=== PATIENT | female | born 2000 | race Hispanic/Latino ===

== ENCOUNTER 2023-01-03 12:33 | Emergency (ER) | payer MEDICAID, SELFPAY ==
[2023-01-03 14:58] LABS: Bilirubin Neg (Negative); Blood, Urine Negative (Negative); Glucose, Urine (Dipstick) Normal (Negative); Ketone, Urine Negative (Negative); Leukocyte Negative (Negative); Nitrite Negative (Negative); Protein, Urine (Dipstick) Negative (Neg-Trace); Urobilinogen Normal mg/dL (Less than 2)
[2023-01-03 15:00] LABS: Clarity Clear (Clear)
== END 2023-01-03 15:29 | disposition home or self-care (01) ==
LOC: CSHERS 12:33
DX: O20.0 Threatened abortion (principal); Z3A.01 Less than 8 weeks gestation of pregnancy
CPT/HCPCS: 36415; 76817; 81003; 86900; 86901

== ENCOUNTER 2024-03-18 16:34 | Inpatient (IN) | payer OTHER ==
[2024-03-18 17:00] VITALS: BMI 30.2
[2024-03-18] MEDS ORDERED: Tranexamic Acid 1,000 MG/10 ML VIAL IVP PRN (17:19)
[2024-03-18] MEDS ORDERED: Carboprost 250 MCG/ML AMP IM PRN (17:19)
[2024-03-18] MEDS ORDERED: Misoprostol 200 MCG TAB PR PRN (17:19)
[2024-03-18] MEDS ORDERED: Acetaminophen 500 MG TAB PO PRN (17:19)
[2024-03-18] MEDS ORDERED: Diphenoxylate HCl/Atropine Tablet PO PRN (17:19)
[2024-03-18] MEDS ORDERED: Promethazine HCl 25 MG/ML VIAL IM PRN (17:19)
[2024-03-18] MEDS ORDERED: hydrALAZINE 20 MG/ML VIAL SLOW IVP PRN (17:19)
[2024-03-18] MEDS ORDERED: Ondansetron PF 4 MG/2 ML Vial IVP PRN (17:19)
[2024-03-18] MEDS ORDERED: Methylergonovine 0.2 MG/ML VIAL IM PRN (17:19)
[2024-03-18] MEDS ORDERED: HYDROcodone/Acetaminophen 5/325 mg Tablet PO PRN (17:19)
[2024-03-18] MEDS ORDERED: Lidocaine 1% (PF) 30 ML VIAL SC PRN (17:19)
[2024-03-18] MEDS ORDERED: Ibuprofen 800 MG TAB PO PRN (17:19)
[2024-03-18] MEDS ORDERED: Lactated Ringer's 1,000 ML IV SCH (17:30)
[2024-03-18] MEDS ORDERED: Oxytocin 30 units/NS 500 ML 500 ML IV SCH ×2 (17:30)
[2024-03-18 17:51] LABS: Fetal Membranes Rupture RUPTURE DETECTED (No Rupture)
[2024-03-18] MEDS: Oxytocin 30 units/NS 500 ML 500 ML IV SCH (18:25)
[2024-03-18 18:48] LABS: Hematocrit 36.6 % (34.9-44.5); Hemoglobin 12.6 g/dL (12.0-15.5); Mean Corpuscular HGB CONC 34.4 g/dL (32.0-36.0); Mean Corpuscular Hemoglobin 33.3 pg (27.0-33.0); Mean Corpuscular Volume 96.8 fL (81.6-98.3); Mean Platelet Volume 13.9 fL (7.4-10.4); Platelet Count 138 10x3/uL (150-450); RBC Distribution Width 13.2 % (11.5-14.5); Red Blood Cell (RBC) Count 3.78 10x6/uL (3.90-5.03); White Blood Cell (WBC) Count 14.1 10x3/uL (3.5-10.5)
[2024-03-18 19:19] LABS: HBsAg Index 0.18 S/CO (0-0.99); Hep B Surf Ag - L&D Non-Reactive S/CO (NonReactive)
[2024-03-18 19:21] LABS: Syphilis Antibody Nonreactive (Nonreactive); Syphilis Antibody Index 0.08 S/CO (<1.00 Non-Reactive)
[2024-03-19] MEDS: fentaNYL 50 mcg/mL 1 mL Vial SLOW IVP PRN (01:41)
[2024-03-19] MEDS ORDERED: Acetaminophen 325 MG TAB PO PRN (03:01)
[2024-03-19] MEDS ORDERED: Moisturizing Cream (Eucerin) 113 GM JAR TOP PRN (03:01)
[2024-03-19] MEDS ORDERED: Promethazine HCl 25 MG/ML VIAL IM PRN ×2 (03:01→07:51)
[2024-03-19] MEDS ORDERED: Lactated Ringer's 500 ML IV PRN (03:01)
[2024-03-19] MEDS ORDERED: ePHEDrine Sulfate 50 MG/10 ML VIAL SLOW IVP PRN (03:01)
[2024-03-19] MEDS ORDERED: Ondansetron PF 4 MG/2 ML Vial IVP PRN ×2 (03:01→07:51)
[2024-03-19] MEDS ORDERED: Naloxone HCl 0.4 mg/ml Vial IVP PRN ×2 (03:01)
[2024-03-19] MEDS ORDERED: diphenhydrAMINE 50 MG/ML VIAL IVP PRN (03:01)
[2024-03-19] MEDS ORDERED: Communication Order-Pharmacy FS SCH (03:15)
[2024-03-19] MEDS: fentaNYL 2 mcg/Ropivacaine 0.2% Epidural 100 ML CADD EPIDURAL SCH (03:27)
[2024-03-19] MEDS ORDERED: Boostrix 0.5 ML (Tdap) VIAL (>/=7 yrs of age) IM ONE (07:51)
[2024-03-19] MEDS ORDERED: Milk Of Magnesia 30 ML UDCUP PO PRN (07:51)
[2024-03-19] MEDS ORDERED: diphenhydrAMINE 25 MG CAP PO PRN (07:51)
[2024-03-19] MEDS ORDERED: Bisacodyl 10 MG SUPP PR PRN (07:51)
[2024-03-19] MEDS ORDERED: Benzocaine-Menthol 82.5 ML CAN TOP PRN (07:51)
[2024-03-19] MEDS ORDERED: Lanolin Ointment 7 GM TUBE TOP PRN (07:51)
[2024-03-19] MEDS ORDERED: hydrALAZINE 20 MG/ML VIAL SLOW IVP PRN (07:51)
[2024-03-19] MEDS: fentaNYL/Ropivacaine Epidural 100 ML ONE (07:56)
[2024-03-19] MEDS: Ferrous Sulfate 325 MG TAB PO SCH (10:14)
[2024-03-19] MEDS: Docusate 100 MG CAP PO SCH (10:14)
[2024-03-19] MEDS: Prenatal Vitamin 1 TAB PO SCH (10:14)
[2024-03-19] MEDS: HYDROcodone/Acetaminophen 5/325 mg Tablet PO PRN (10:18)
[2024-03-19] MEDS: Ibuprofen 800 MG TAB PO SCH (12:12)
[2024-03-19] MEDS ORDERED: Bupivacaine 0.25% HCL 30 ML VIAL ONE (16:04)
[2024-03-20 09:07] VITALS: TEMP 98
[2024-03-20 09:08] VITALS: BP 103/57
== END 2024-03-20 15:00 | disposition home or self-care (01) | DRG 807 ==
LOC: CSHLD/OP 16:34 → CSHLD 17:30 → CSHPP 03-19 07:30
PROVIDERS: ADMIT Family Medicine; ATTEND Family Medicine
PROC: 10E0XZZ Delivery of Products of Conception, External Approach (ICD-10-PCS; principal; 2024-03-19)
DX: O42.02 Full-term premature rupture of membranes, onset of labor within 24 hours of rupture (principal); Z37.0 Single live birth; Z3A.38 38 weeks gestation of pregnancy
CPT/HCPCS: 36415; 51702; 84112; 85027; 86780; 86850; 86900; 86901; 87340; 99285; J0665; J2590; J3010